=== PATIENT | male | born 1995 | race Caucasian/White ===

== ENCOUNTER 2022-06-28 12:47 | Emergency (ER) | payer SELFPAY ==
[2022-06-28 13:30] VITALS: BP 146/99; PULSE 70; RESP 16; TEMP 37.3; O2SAT 98; BMI 24.2
[2022-06-28 15:17] VITALS: BP 0/0; PULSE 0; RESP 0; TEMP -17.7; TEMP 0; O2SAT 0
--- NOTE | 2022-06-28 15:17 | PC.NURSE ---
went out to call pt back for triage no response from [facility] WR or ED lobby. Assume pt LWBS
== END 2022-06-28 15:18 | disposition left against medical advice (07) ==
PROVIDERS: Emergency Provider Nurse Practitioner Family
DX: Z53.21 Procedure and treatment not carried out due to patient leaving prior to being seen by health care provider (principal)